=== PATIENT | female | born 1965 | race African-American/Black ===

== ENCOUNTER 2019-06-10 19:09 | Emergency (ER) | payer BC ==
[~2019-06-10] VITALS: Ht 160 cm; Wt 68.0 kg
[2019-06-10 19:41] VITALS: BP 132/71
--- NOTE | 2019-06-10 19:49 | NUR ---
BIBSELF C/O POSSIBLY SWALLOWING A BONE WHILE EATING AROUND 1400 HOURS. PATIENT STATES FEELS LIKE IT SCRATCHED HER THROAT, DENIES ANY SOB. DOES NOT APPEAR TO BE IN DISTRESS. AOX4, AMB, VSS, RR EVEN AND UNLABORED ON RA. NO OTHER COMPLAINTS AT THIS TIME. READY FOR EVAL.
--- NOTE | 2019-06-10 21:37 | NUR ---
PT RESTING QUIETLY IN BED. AWAITING RESULTS FOR CXR. WILL CONT TO MONITOR.
--- NOTE | 2019-06-10 23:59 | NUR ---
Patient is resting comfortably in bed with eyes closed. Easily aroused. AWAITING CT RESULTS.
--- NOTE | 2019-06-11 00:02 | NUR ---
ASSUMED CARE FOR PT
--- NOTE | 2019-06-11 00:41 | NUR ---
Patient discharged to home in stable condition. Written and verbal after care instructions given. Patient verbalizes understanding of instruction.
== END 2019-06-11 00:43 | disposition home or self-care (01) ==
LOC: ER 19:15
DX: R09.89 Other specified symptoms and signs involving the circulatory and respiratory systems (principal); M54.2 Cervicalgia
CPT/HCPCS: 70360-TC; 70490-TC